=== PATIENT | female | born 1990 | race Two or more races ===

== ENCOUNTER 2020-05-19 11:37 | Emergency (ER) | payer MEDICAID ==
[~2020-05-19] VITALS: Ht 160 cm; Wt 76.2 kg
[2020-05-19 12:05] VITALS: BP 142/81
--- NOTE | 2020-05-19 12:08 | NUR ---
ED Nurse Note: pt presents to ED c/o R sided back pain that radiates to the R leg. pt has a h/o sciatic pain and states this feels like her sciatic pain. pt denies any pain with urination or loss of bowel/bladder function. px is worse with movement
--- NOTE | 2020-05-19 12:21 | Emergency Room Report ---
History of Present Illness General Chief Complaint: Pain Source: Patient Present Illness HPI The patient presents with severe back pain that radiates down her right leg. This is been ongoing for several weeks. She denies any trauma or instigating episode. She has been at bedrest for 3 weeks. Better for 4 days. 2 days of increased pain. Motrin 800 and Tylenol. States she has not seen anyone to evaluate this problem in the past. She denies auto accidents. She denies weakness or numbness. She denies fevers or chills. No blood thinners, oncologic problems. No incontinence. She denies dysuria. She not at this time. Is been several months since her last period as she has an IUD. She rates the pain 10/10 aching and burning radiating down her right leg. She is unable to lay down. She was unable to sleep last night. No exposure to positive COVID-19 contacts. No sore throat, chest pain, palpitations, nausea, vomiting, diarrhea, abdominal pain, shortness of breath, rashes, depression, anxiety, visual changes, dizziness, headache. 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 Now: No - IUD Reviewed Nursing Documentation: PMH: Agreed; PSxH: Agreed Nursing Documentation-PMH Past Medical History: No Stated History Review of Systems All Other Systems: negative except mentioned in HPI Physical Exam Vital Signs Date Time Temp Pulse Resp B/P (MAP) Pulse Ox O2 Delivery O2 Flow Rate FiO2 05/19/20 11:44 98.2 68 15 142/81 (101) 97 Room Air Sp02 EP Interpretation: reviewed, normal General Appearance: well appearing, no apparent distress - In pain, GCS 15, non -toxic Head: normocephalic Eyes: bilateral eye normal inspection, bilateral eye PERRL, bilateral eye EOMI ENT: moist mucus membranes Neck: full range of motion, supple Respiratory: lungs clear, normal breath sounds Cardiovascular #1: regular rate, rhythm Cardiovascular #2: 2+ radial (R), 2+ dorsalis pedis (R) Gastrointestinal: normal inspection, non-distended Genitourinary: no CVA tenderness Musculoskeletal: tender - Lumbar spine right side with paraspinous spasm, other Neurologic: alert, motor strength/tone normal, DTRs symmetric, oriented x3, sensory intact Psychiatric: mood/affect normal - In pain Reflexes: 2+ knee (R), 2+ knee (L), 2+ ankle (R), 2+ ankle (L) Skin: no rash, warm/dry Medical Decision Making Diagnostic Impression: Primary Impression: Sciatica Qualified Codes: M54.31 - Sciatica, right side ER Course Patient presents with severe lower back pain rating down her right leg. Differential includes sciatica, nerve impairment, degenerative disc disease, lumbar strain, muscle spasm amongst others. The patient has severe debility at this time and radiologic evaluation indicated. In addition laboratory studies will be performed. The patient is given Zofran and morphine. CT scan ordered. Labs unremarkable. CT with DJD and some foraminal stenosis on the right-hand side. After morphine patient reports pain at 7/10. She is able to lay on her back. With negative test Toradol is administered. Diagnosis is sciatica. As the patient has no nerve deficit at this time with normal reflexes, sensory and motor emergent surgery and surgery is not indicated. Patient is improved symptomatically. Discussed these results with the patient. Discussed treatment plan and the need for follow-up with a physician. No medical emergency at this time. Patient stable for outpatient observation and treatment. Laboratory Tests Test 05/19/20 12:35 White Blood Count 9.1 K/UL (4.8-10.8) Red Blood Count 4.75 M/UL (4.20-5.40) Hemoglobin 14.7 G/DL (12.0-16.0) Hematocrit 43.2 % (37.0-47.0) Mean Corpuscular Volume 91 FL (80-99) Mean Corpuscular Hemoglobin 30.9 PG (27.0-31.0) Mean Corpuscular Hemoglobin Concent 34.0 G/DL (32.0-36.0) Red Cell Distribution Width 11.1 % (11.6-14.8) L Platelet Count 221 K/UL (150-450) Mean Platelet Volume 7.2 FL (6.5-10.1) Neutrophils (%) (Auto) 55.8 % (45.0-75.0) Lymphocytes (%) (Auto) 33.9 % (20.0-45.0) Monocytes (%) (Auto) 6.8 % (1.0-10.0) Eosinophils (%) (Auto) 2.3 % (0.0-3.0) Basophils (%) (Auto) 1.2 % (0.0-2.0) Erythrocyte Sedimentation Rate 20 MM/HR (0-20) Prothrombin Time 10.7 SEC (9.30-11.50) Prothrombin Time INR 1.0 (0.9-1.1) Activated Partial Thromboplast Time 28 SEC (23-33) Urine Color Pale yellow Urine Appearance Clear Urine pH 6 (4.5-8.0) Urine Specific [place] 1.015 (1.005-1.035) Urine Protein Negative (NEGATIVE) Urine Glucose (UA) Negative (NEGATIVE) Urine Ketones Negative (NEGATIVE) Urine Blood Negative (NEGATIVE) Urine Nitrite Negative (NEGATIVE) Urine Bilirubin Negative (NEGATIVE) Urine Urobilinogen Normal MG/DL (0.0-1.0) Urine Leukocyte Esterase Negative (NEGATIVE) Urine RBC 0-2 /HPF (0 - 2) Urine WBC 0-2 /HPF (0 - 2) Urine Squamous Epithelial Cells Few /LPF (NONE/OCC) Urine Bacteria Occasional /HPF (NONE) Urine HCG, Qualitative Negative (NEGATIVE) Sodium Level 139 MMOL/L (136-145) Potassium Level 4.0 MMOL/L (3.5-5.1) Chloride Level 105 MMOL/L (98-107) Carbon Dioxide Level 28 MMOL/L (21-32) Anion Gap 6 mmol/L (5-15) Blood Urea Nitrogen 10 mg/dL (7-18) Creatinine 0.8 MG/DL (0.55-1.30) Estimated Glomerular Filtration Rate > 60 mL/min (>60) Glucose Level 95 MG/DL (74-106) Calcium Level 9.3 MG/DL (8.5-10.1) Total Bilirubin 0.6 MG/DL (0.2-1.0) Aspartate Amino Transferase (AST) 10 U/L (15-37) L Alanine Aminotransferase (ALT) 29 U/L (12-78) Alkaline Phosphatase 62 U/L (46-116) Total Protein 8.2 G/DL (6.4-8.2) Albumin 4.3 G/DL (3.4-5.0) Globulin 3.9 g/dL Albumin/Globulin Ratio 1.1 (1.0-2.7) Urine Opiates Screen Negative (NEGATIVE) Urine Barbiturates Screen Negative (NEGATIVE) Phencyclidine (PCP) Screen Negative (NEGATIVE) Urine Amphetamines Screen Negative (NEGATIVE) Urine Benzodiazepines Screen Negative (NEGATIVE) Urine Cocaine Screen Negative (NEGATIVE) Urine Marijuana (THC) Screen Positive (NEGATIVE) H CT/MRI/US Diagnostic Results CT/MRI/US Diagnostic Results : Imaging Test Ordered: Lumbar spine Impression FINDINGS: Bones: Normal alignment. No acute fracture or bony lesion. Disc spaces: No subluxation. Mild degenerative changes of the spine. Mild spinal canal stenosis at L2-3 and L3-4. Small right paracentral disc protrusion at L4-5 which mildly narrows the right lateral recess. Mild bilateral neural foraminal stenoses at L2-3 and L3-4. Moderate bilateral neural foraminal stenoses at L4-5 and L5-S1. Soft tissues: Normal. Other: Normal appendix. Phleboliths in the pelvis. Small amount of fluid in the cul-de-sac may be physiologic. Intrauterine device in appropriate position. Dominant follicle or small cyst in the right ovary. IMPRESSION: 1. No acute traumatic abnormality. 2. Mild degenerative changes of the lumbar spine as described above. Further evaluation of spinal canal contents could be performed with MRI if clinically indicated. Last Vital Signs Date Time Temp Pulse Resp B/P (MAP) Pulse Ox O2 Delivery O2 Flow Rate FiO2 05/19/20 15:15 98.3 85 15 134/82 97 Room Air Status: improved Disposition: HOME, SELF-CARE Condition: Improved Scripts Methocarbamol* (ROBAXIN-500*) 500 Mg Tablet 500 MG ORAL TID PRN for muscle spasm, #10 TAB 0 Refills Prov: Marky Torres MD 05/19/20 Hydrocodone Bit/Acetaminophen 5-325* (NORCO 5-325 TABLET*) 1 Each Tablet 1 TAB ORAL Q6H PRN for FOR PAIN, #8 TAB 0 Refills Prov: Marky Torres MD 05/19/20 Acetaminophen (Tylenol) 325 Mg Tablet 650 MG ORAL Q6H PRN for Prn Pain/Headache/Temp > 101, #20 TAB 0 Refills Prov: Marky Torres MD 05/19/20 Ibuprofen* (MOTRIN*) 600 Mg Tablet 600 MG ORAL Q6H PRN for FOR PAIN, #20 TAB 0 Refills Prov: Marky Torres MD 05/19/20 Marky Torres MD May 19, 2020 12:21
[2020-05-19] MEDS ORDERED: DiphenhydrAMINE 50mg/ml Inj IVP ONE (12:30)
[2020-05-19] MEDS ORDERED: Metoclopramide 10mg/2ml Inj IVP ONE (12:30)
[2020-05-19] MEDS ORDERED: Morphine Sulfate 4mg/ml Inj (IV USE ONLY) IVP ONE (12:30)
[2020-05-19 13:08] LABS: BASOPHILS % (AUTO) 1.2 % (0.0-2.0); EOSINOPHILS % (AUTO) 2.3 % (0.0-3.0); HEMATOCRIT 43.2 % (37.0-47.0); HEMOGLOBIN 14.7 G/DL (12.0-16.0); LYMPHOCYTES % (AUTO) 33.9 % (20.0-45.0); MEAN CORPUSCULAR VOLUME 91 FL (80-99); MONOCYTES % (AUTO) 6.8 % (1.0-10.0); NEUTROPHILS % (AUTO) 55.8 % (45.0-75.0); PLATELET COUNT 221 K/UL (150-450); RED BLOOD COUNT 4.75 M/UL (4.20-5.40); RED CELL DISTRIBUTION WIDTH 11.1 % (11.6-14.8); WHITE BLOOD COUNT 9.1 K/UL (4.8-10.8)
[2020-05-19 13:10] LABS: APPEARANCE,URINE CLEAR; BILIRUBIN, URINE NEGATIVE (NEGATIVE); COLOR,URINE PALE YELLOW; GLUCOSE, URINE (UA) NEGATIVE (NEGATIVE); KETONES,URINE NEGATIVE (NEGATIVE); LEUKOCYTE ESTERASE ,URINE NEGATIVE (NEGATIVE); NITRITE,URINE NEGATIVE (NEGATIVE); PH,URINE 6 (4.5-8.0); PROTEIN,URINE NEGATIVE (NEGATIVE); UROBILINOGEN,URINE NORMAL MG/DL (0.0-1.0)
[2020-05-19 13:13] LABS: ANION GAP 6 mmol/L (5-15); BLOOD UREA NITROGEN 10 mg/dL (7-18); CALCIUM 9.3 MG/DL (8.5-10.1); CARBON DIOXIDE 28 MMOL/L (21-32); CHLORIDE 105 MMOL/L (98-107); CREATININE 0.8 MG/DL (0.55-1.30); SODIUM 139 MMOL/L (136-145)
[2020-05-19 13:18] LABS: ALANINE AMINOTRANSFERASE 29 U/L (12-78); ALBUMIN 4.3 G/DL (3.4-5.0); ALBUMIN/GLOBULIN RATIO 1.1 (1.0-2.7); ALKALINE PHOSPHATASE 62 U/L (46-116); ASPARTATE AMINO TRANSFERASE 10 U/L (15-37); BILIRUBIN,TOTAL 0.6 MG/DL (0.2-1.0)
[2020-05-19] MEDS ORDERED: Ketorolac 30mg Inj IV ONE (14:30)
--- NOTE | 2020-05-19 14:38 | Diagnostic Imaging Report ---
EXAM: CT Lumbar Spine Without Intravenous Contrast CLINICAL HISTORY: PAIN TECHNIQUE: Axial computed tomography images of the lumbar spine without intravenous contrast. CTDI is 10.1 mGy and DLP is 368 mGy-cm. One or more of the following dose reduction techniques were used: automated exposure control, adjustment of the mA and/or kV according to patient size, use of iterative reconstruction technique. COMPARISON: None FINDINGS: Bones: Normal alignment. No acute fracture or bony lesion. Disc spaces: No subluxation. Mild degenerative changes of the spine. Mild spinal canal stenosis at L2-3 and L3-4. Small right paracentral disc protrusion at L4-5 which mildly narrows the right lateral recess. Mild bilateral neural foraminal stenoses at L2-3 and L3-4. Moderate bilateral neural foraminal stenoses at L4-5 and L5-S1. Soft tissues: Normal. Other: Normal appendix. Phleboliths in the pelvis. Small amount of fluid in the cul-de-sac may be physiologic. Intrauterine device in appropriate position. Dominant follicle or small cyst in the right ovary. IMPRESSION: 1. No acute traumatic abnormality. 2. Mild degenerative changes of the lumbar spine as described above. Further evaluation of spinal canal contents could be performed with MRI if clinically indicated.
[2020-05-19 15:15] VITALS: BP 134/82
[2020-05-19] MEDS ORDERED: IBUPROFEN600 M1 ORAL (15:15)
[2020-05-19] MEDS ORDERED: TYLENOL325 MG ORAL (15:15)
[2020-05-19] MEDS ORDERED: ROBAXIN-500MG ORAL (15:15)
[2020-05-19] MEDS ORDERED: NORCO 5-325 TA1 EAC1 ORAL (15:15)
--- NOTE | 2020-05-19 15:15 | NUR ---
ER DISCHARGE NOTE: Patient is cleared to be discharged per ERMD, pt is aox4, on room air, with stable vital signs. pt was given dc and prescription instructions as well as f/u instructions. pt was able to verbalize understanding of teachings. pt id band and iv site removed without complications. pt is able to ambulate with steady gait. pt took all belongings.
== END 2020-05-19 15:15 | disposition home or self-care (01) ==
LOC: EMR 13:25
DX: M54.31 Sciatica, right side (principal); Z97.5 Presence of (intrauterine) contraceptive device; F17.200 Nicotine dependence, unspecified, uncomplicated; M48.061 Spinal stenosis, lumbar region without neurogenic claudication; M51.26 Other intervertebral disc displacement, lumbar region
CPT/HCPCS: 36415; 72131; 80053; 80307; 81001; 81025; 85025; 85610; 85651; 85730; 96374; 96375; J1200; J1885; J2270; J2765; Z7502; 99284